=== PATIENT | female | born 1960 | race Two or more races ===

== ENCOUNTER 2022-08-20 19:20 | Emergency (ER) | payer OTHER ==
[~2022-08-20] VITALS: Ht 157.5 cm; Wt 57.2 kg
--- NOTE | 2022-08-20 19:50 | NUR ---
18G IV [id number] AT [facility]. BLOOD COLLECTED AND SENT TO LAB
--- NOTE | 2022-08-20 19:53 | NUR ---
COSTUME MAKER AT PT'S BEDSIDE
[2022-08-20 20:07] LABS: BASOPHILS % (AUTO) 0.4 % (0.0-2.0); EOSINOPHILS % (AUTO) 1.2 % (0.0-6.0); HEMATOCRIT 38 % (33-45); LYMPHOCYTES # (AUTO) 1.4 K/uL (0.8-4.8); LYMPHOCYTES % (AUTO) 28.7 % (20.0-44.0); MEAN CORPUSCULAR HGB CONC 34 g/dl (31.0-36.0); MEAN CORPUSCULAR VOLUME 86 fL (82-100); MONOCYTES # (AUTO) 0.2 K/uL (0.1-1.30); MONOCYTES % (AUTO) 4.8 % (2.0-12.0); NEUTROPHILS # (AUTO) 3.1 K/uL (1.8-8.9); NEUTROPHILS % (AUTO) 64.9 % (43.0-81.0); PLATELET COUNT (AUTO) 232 K/uL (150-450); RED BLOOD CELL COUNT(AUTO) 4.48 MIL/uL (4.0-5.2); WHITE BLOOD COUNT (AUTO) 4.7 K/uL (4.3-11.0)
--- NOTE | 2022-08-20 20:09 | NUR ---
ELECTRONICS RECYCLER AT PT'S BEDSIDE
[2022-08-20 20:17] LABS: CALCIUM, SERUM 8.7 mg/dL (8.5-10.1); CARBON DIOXIDE 26 mmol/L (21-32); CHLORIDE 103 mmol/L (98-107); CREATININE 0.7 mg/dL (0.6-1.3); GLUCOSE 121 mg/dL (74-106); SODIUM SERUM 140 mmol/L (136-145); UREA NITROGEN, BLOOD 13 mg/dL (7-18)
[2022-08-20] MEDS ORDERED: TRANEXAMIC ACID 1,000 MG/10 ML VIAL ONE (20:20)
[2022-08-20] MEDS ORDERED: IOHEXOL-350 100 ML VIAL IV ONE (20:25)
[2022-08-20] MEDS ORDERED: IV NS 0.9% 250 ML IV ONE (20:25)
[2022-08-20] MEDS ORDERED: CT SWABBABLE VALVE TRANS SET 1 EA INFUS.SET MC ONE (20:25)
[2022-08-20 20:29] LABS: ALANINE AMINOTRANSFERASE 131 U/L (12-78); ALBUMIN 3.9 g/dL (3.4-5.0); ALKALINE PHOSPHATASE 202 U/L (46-116); ASPARTATE AMINOTRANSFERASE 97 U/L (15-37); BILIRUBIN,DIRECT 0.1 mg/dL (0.0-0.2); BILIRUBIN,TOTAL 0.5 mg/dL (0.2-1.0); TOTAL PROTEIN, SERUM 7.3 g/dL (6.4-8.2)
[2022-08-20] MEDS ORDERED: TRANEXAMIC ACID 1,000 MG/10 ML VIAL TOP ONE (20:30)
--- NOTE | 2022-08-20 20:44 | NUR ---
patient retuirned from ct
--- NOTE | 2022-08-20 21:27 | NUR ---
MOVESHEET SUBMITTED FOR AUTH
--- NOTE | 2022-08-20 21:38 | NUR ---
DR COTTER [phone]
--- NOTE | 2022-08-20 21:40 | NUR ---
CALLED DR COTTER FROM [facility], SPEAKING WITH DR NARANJO REGARDING ADMISSION
--- NOTE | 2022-08-20 21:41 | NUR ---
Ismael cummings in ED - 08/20/22 at 2143 by RADHA PATIENT PICKED UP BY [facility] FOR DISCHARGE BACK TO INTERMEDIATE FACILITY. iv REMOIVED. REPORT CALLED TO RECIEVING FACILITY AND DISCHARGE PACKET PROVIDED TO REGISTERED NURSE MIDWIFE.
[2022-08-20 21:50] VITALS: BP 150/91
--- NOTE | 2022-08-20 22:42 | NUR ---
UPDATED [facility] WITH UPDATED CLINICAL INFORMATION. TOLD HE IS WORKING ON BED AT THIS TIME.
--- NOTE | 2022-08-20 23:05 | NUR ---
TRANSFER INFO: PT GOING TO [facility] ACCEPTED BY DR STRATTON, ROOM [id number], RN FOR REPORT [phone], [facility] ETA 35-45 MINUTES
--- NOTE | 2022-08-20 23:52 | NUR ---
PATIENT PICKED UP BY [facility] FOR TRANSPORT TO [facility] DIRECT ADMISSION TO ROOM 604. TRANSFER PACKET PREPARED AND PROVIDED TO BUOY TENDER. REPORT GIVEN TO RECIEVING ZOHAIB JOHNSTON. ALL V/S STABLE AT TRANSFER, BELONGINGS WITH PATIENT.
== END 2022-08-21 | disposition short-term general hospital (02) ==
LOC: ER 20:22
DX: R04.2 Hemoptysis (principal); Z20.822 Contact with and (suspected) exposure to COVID-19; E78.00 Pure hypercholesterolemia, unspecified
CPT/HCPCS: 99291; 71275; 87426; 93005; 71045; 85025; 80048; 80076; 36415; 84484; 85730; 87081; 83880; J7050; Q9967; C9803

== ENCOUNTER 2025-03-03 15:42 | Emergency (ER) | payer OTHER ==
[~2025-03-03] VITALS: Ht 157.5 cm; Wt 72.1 kg
[2025-03-03 16:06] VITALS: TEMP 98.1
[2025-03-03] MEDS ORDERED: ACETAMINOPHEN ES 500 MG TABLET ONE (17:07)
[2025-03-03] MEDS: ACETAMINOPHEN ES 500 MG TABLET PO ONE (17:08)
[2025-03-03 17:16] LABS: PLATELET COUNT (AUTO) 252 K/uL (150-450); RED BLOOD CELL COUNT(AUTO) 4.68 MIL/uL (4.0-5.2); RED CELL DISTRIBUTION WIDTH 14.0 % (11.5-15.0); WHITE BLOOD COUNT (AUTO) 5.8 K/uL (4.3-11.0)
[2025-03-03 17:47] LABS: CALCIUM, SERUM 9.5 mg/dL (8.5-10.1); CREATININE 0.6 mg/dL (0.6-1.3); SODIUM SERUM 140 mmol/L (136-145); UREA NITROGEN, BLOOD 16 mg/dL (7-18)
[2025-03-03 17:59] LABS: ASPARTATE AMINOTRANSFERASE 40 U/L (15-37); NT-PRO BNP 63 pg/mL (0-125); TOTAL PROTEIN, SERUM 7.9 g/dL (6.4-8.2)
[2025-03-03] MEDS ORDERED: IOHEXOL-350 100 ML VIAL IV ONE (19:51)
[2025-03-03] MEDS ORDERED: IV NS 0.9% 250 ML IV ONE (19:51)
[2025-03-03] MEDS ORDERED: ASPIRIN 325 MG TABLET ONE (21:53)
[2025-03-03] MEDS: ASPIRIN 325 MG TABLET PO ONE (22:00)
[2025-03-03 22:05] VITALS: BP 135/75; O2SAT 98
== END 2025-03-04 02:17 | disposition short-term general hospital (02) ==
LOC: EDBD 15:45 → ER 15:45
DX: R20.0 Anesthesia of skin (principal); R51.9 Headache, unspecified; R00.2 Palpitations; E78.00 Pure hypercholesterolemia, unspecified; Z85.038 Personal history of other malignant neoplasm of large intestine
CPT/HCPCS: 99291; 70498; 71045; 93005; 70496; 85025; 80048; 80076; 36415; 84484; 83880; 70450; J7050; Q9967